=== PATIENT | female | born 1955 | race Caucasian/White ===

== ENCOUNTER → 2023-10-10 11:00 | Outpatient (REF) | payer MEDICARE, OTHER, SELFPAY | LOC: RAD 11:00 | PROVIDERS: ATTENDING PHYSICIAN Internal Medicine Gastroenterology | DX: R19.7 Diarrhea, unspecified (principal) | CPT/HCPCS: 74018 ==

== ENCOUNTER → 2023-12-12 09:47 | Outpatient (REF) | payer MEDICARE, OTHER, SELFPAY | LOC: RAD 09:47 | PROVIDERS: ATTENDING PHYSICIAN Physician Assistant Medical | DX: J18.9 Pneumonia, unspecified organism (principal) | CPT/HCPCS: 71046 ==

== ENCOUNTER 2023-12-18 12:05 | Emergency (ER) | payer MEDICARE, OTHER, SELFPAY ==
[2023-12-18 12:08] VITALS: BP 133/65
[2023-12-18 12:31] LABS: % Basophils 0.4 % (0-2); % Eosinophils 1.6 % (0-6); % Immature Granulocytes 0.3 % (0-0.5); % Lymphocytes 24.6 % (20.5-51.1); % Monocytes 6.1 % (1.7-9.3); Absolute Eosinophils 0.1 10^3/uL (0-0.7); Absolute Lymphocytes 1.7 10^3/uL (1.2-3.4); Absolute Monocytes 0.4 10^3/uL (0.1-0.6); Absolute Neutrophils 4.6 10^3/uL (1.4-6.5); Hematocrit 36.2 % (37.0-47.0); Hemoglobin 11.9 g/dL (12.0-16.0); Mean Corp Hgb Conc. 32.9 g/dL (33.0-37.0); Mean Corpuscular Hgb 29.7 pg (27.0-31.0); Mean Corpuscular Volume 90.3 fL (81.0-99.0); Nucleated Red Blood Cells % 0 %; Platelet Count 260 10^3/uL (130-400); Red Blood Cell Count 4.01 10^6/uL (4.20-5.40); White Blood Cell Count 6.9 10^3/uL (4.8-10.8)
[2023-12-18 12:42] LABS: INR 1.01; PT 13.1 Sec (11.4-14.6)
[2023-12-18 12:44] LABS: ALT (SGPT) 20 U/L (0-35); AST (SGOT) 27 U/L (14-36); Albumin 3.8 g/dl (3.5-5.0); Alkaline Phosphatase 102 U/L (38-126); Blood Urea Nitrogen 14 mg/dl (7-17); Calcium 9.3 mg/dl (8.4-10.2); Carbon Dioxide 25 mmol/L (22-30); Chloride 106 mmol/L (98-107); Glucose 132 mg/dl (70-99); Potassium 4.8 mmol/L (3.5-5.1); Sodium 139 mmol/L (135-145); Total Bilirubin 0.5 mg/dl (0.2-1.3); Total Protein 6.7 g/dl (6.3-8.2); eGFR > 60.00
[2023-12-18 15:07] VITALS: BP 136/68
--- NOTE | 2023-12-18 15:24 | ED.GENMED ---
History of Present Illness
General
Chief Complaint: Breathing Problem
Source: patient
Exam Limitations: none
Time Seen by Provider: 12/18/23 15:14
Travel History
Have you had any contact with someone who has COVID-19?: No
Do you have any symptoms of coronavirus? Fever > 100 degrees, chills, cough, shortness of breath, sore throat, loss of taste or smell, muscle aches, or headache?: No
History of Present Illness
History of Present Illness:
See MDM
Past History
Past History
ED Past Medical History: Arrthythmia (SVT, PVCs), Asthma, Hypothyroidism and Other (Pancreatitis, History of ulcerative colitis)
ED Past Surgical History: Cholecystectomy, Tonsilectomy and Other (C5-6 removal with Fusion and cage)
Social History
Tobacco: Former smoker
Alcohol: None
Personal:
Living: with family
Employment: Employed
Phy Exam
Physical Exam
Physical Exam:
See MDM
Scores
Heart Failure Risk
Heart Failure Risk Score: Not Applicable
Course
Orders/Labs/Results
Orders:
Orders
12/18/23 12:14
Electrocardiogram (*1) Urgent
Reason for Study: Chest Pain
12/18/23 12:15
EKG- Treatment ONCE
12/18/23 12:22
Complete Blood Count/With Diff Urgent
Comprehensive Metabolic Panel Urgent
Prothrombin Time Urgent
12/18/23 15:23
CT Chest Pe Study Urgent
Comment: recent dx pna
Reason For Exam: SOB, cough
12/18/23 15:33
NT-proBNP Urgent
Troponin I Urgent
Abnormal Lab Results
12/18/23
12:22
RBC 4.01 L 10^6/uL
(4.20-5.40)
Hgb 11.9 L g/dL
(12.0-16.0)
Hct 36.2 L %
(37.0-47.0)
MCHC 32.9 L g/dL
(33.0-37.0)
Glucose 132 H mg/dl
(70-99)
12/18/23 12:22
12/18/23 12:22
Vital Signs
Initial and Last Documented VS:
Initial Vital Signs
Temp Pulse Resp BP Pulse Ox
97.7 F 70 18 133/65 96
12/18/23 12:08 12/18/23 12:08 12/18/23 12:08 12/18/23 12:08 12/18/23 12:08
Last Documented Vital Signs
Temp Pulse Resp BP Pulse Ox
97.7 F 66 16 136/68 96
12/18/23 12:08 12/18/23 15:08 12/18/23 15:08 12/18/23 15:07 12/18/23 12:08
MDM/Problems Addressed
Differential Diagnosis Includes:
HPI and MDM Narrative:
68-year-old female presenting from PCP office to rule out PE. She is currently on her second round of antibiotics for persistent pneumonia. She has been dealing with a cough for 20 days. Patient does acknowledge that she thinks she is doing
better but she has a trip coming up and wants to make sure that everything is okay. Given recent, PCP sent her in for PE rule out. Patient states she gets winded with exertion. Because of this, will obtain troponin and BNP. Patient relatively
symptom-free at rest
Physical exam
General: Well appearing and non-toxic
HEENT: protecting airway
Neck: appears supple
CV: No evidence of cyanosis. Regular rate and rhythm
Resp: No accessory muscle use. Lungs clear
Abd: Non-distended
Extremities: No deformities. No leg edema
Neuro: alert
Psych: Normal affect
Skin: Intact
Problems Addressed including Acute and Chronic Conditions affecting care:
1. Shortness of breath
Acuity: acute
Prognosis: stable
Details: Given persistent symptoms, will obtain CT to rule out PE
Updates
Cardiac testing negative. CT PE negative. We discussed Bronchiolitis. Patient already finished a course of steroids early in her disease process and states she does not tolerate steroids well. Will write for steroid inhaler
Differential Diagnosis (but not limited to): PE, ACS, pneumonia
Testing considered: Chest x-ray
Drug therapy (if applicable): OTC meds, please see d/c instruction regarding Rx drugs
Amount and/or Complexity of Data Reviewed
Clinical info obtained from: Patient
External data reviewed: N/A
Labs I independently reviewed (but not limited to): Troponin and BNP negative
Radiology: The CT scan was personally and independently reviewed. In addition, official CT report reviewed.
Pulse Ox: not hypoxic
EKG independently reviewed: N/A
Pageant Director: N/A
Critical Care: N/A
Risk of Complication:
Social Determinants of health: Good social support
Discussed with other providers: N/A
Escalation of Care includes Admit/Obs: After being observed in the Emergency Department, pt stable for discharge.
Occasional wrong word or 'sound a like' substitutions may have occurred due to the inherent limitations of voice recognition software. Read the chart carefully and recognize, using context, where substitutions have occurred.
*Critical Care Note
Total Time (30-74mins, 75-104mins- exclusive of procedures): Not Applicable
ED Attending Note
-
Portions of this chart may have been created with voice recognition software.� Occasional wrong word or��sound alike� substitutions may have occurred due to the inherent limitations of voice recognition software.
Discharge Plan
Departure
Patient Disposition: Home (Routine Discharge)
Date of Disposition: 12/18/23
Time of Disposition: 17:33
Patient with high blood pressure during this ER visit?: No
Discharge Problem:
Bronchiolitis
Prescriptions:
New
fluticasone propion-salmeterol [Wixela Inhub] 500-50 mcg/dose blister with device
1 inh inhalation BID Qty: 60 0RF
No Action
amitriptyline 10 MG tablet
10 mg PO HS
levothyroxine 150 MCG tablet
150 mcg PO DAILY
Patient Comments:
Brand H
albuterol sulfate 1 PUFF HFA aerosol inhaler
1 - 2 puff inhalation PRN PRN (Reason: Short of breath)
loratadine 10 MG tablet
10 mg PO PRN PRN (Reason: allergy)
cholestyramine (with sugar) 378 GM powder
1 pack PO DAILY
Patient Comments:
rarely used
fluticasone furoate-vilanterol [Breo Ellipta] 1 EACH blister with device
1 puff inhalation DAILY
Saline Nasal Gel
1 applic ophthalmic (eye) HS
Patient Comments:
USED FOR THE EYES FOR FUCHS DYSTROPHY
hydrocodone-acetaminophen 1 TABLET tablet
1 tab PO Q4H PRN (Reason: PAIN)
acetaminophen [Tylenol Extra Strength] 500 MG tablet
1,000 mg PO Q6H PRN (Reason: PAIN)
cholecalciferol (vitamin D3) 2,000 UNIT tablet
1 tab PO DAILY
Referrals:
Noe Varghese PA-C [Family Provider] -
Activity Restrictions/Additional Instructions:
Please return for any worsening symptoms.
You may return at any time if you have further concerns.
Please follow up with your doctor at the first available appointment, preferably this week.
Thank you for choosing [facility].
Interventions
Interventions:
*Risk Screen - Suicide Last Done: 12/18/23 12:08
*General Assessment Last Done: 12/18/23 12:08
*Neglect/Abuse Screening Last Done: 12/18/23 12:08
ED- Fall Risk Assessment Last Done: 12/18/23 15:11
ED- Cardiac Assessment Last Done: 12/18/23 15:11
ED- Pulmonary Assessment Last Done: 12/18/23 15:11
Discharge Date and Time
Print Language: DANISH
[2023-12-18 16:10] LABS: NT-proBNP 65.5 pg/ml; Troponin I < 0.012 ng/ml
== END 2023-12-18 17:44 | disposition home or self-care (01) ==
LOC: EMR 12:05
PROVIDERS: Emergency Medicine; EMERGENCY PHYSICIAN Student in an Organized Health Care Education/Training Program; FAMILY PHYSICIAN Physician Assistant Medical
DX: J21.9 Acute bronchiolitis, unspecified (principal); J45.909 Unspecified asthma, uncomplicated; E03.9 Hypothyroidism, unspecified; Z87.891 Personal history of nicotine dependence; Z90.49 Acquired absence of other specified parts of digestive tract; J18.9 Pneumonia, unspecified organism; I47.10 Supraventricular tachycardia, unspecified; I49.3 Ventricular premature depolarization
CPT/HCPCS: 99284; 71275; 80053; 83880; 84484; 85025; 85610; 93005; Q9967

== ENCOUNTER → 2024-01-15 14:22 | Outpatient (REF) | payer MEDICARE, OTHER, SELFPAY | LOC: HWWDC 14:22 | PROVIDERS: ATTENDING PHYSICIAN Obstetrics & Gynecology; FAMILY PHYSICIAN Physician Assistant Medical | DX: Z12.31 Encounter for screening mammogram for malignant neoplasm of breast (principal) | CPT/HCPCS: 77063; 77067 ==

== ENCOUNTER → 2024-03-22 11:13 | Outpatient (REF) | payer MEDICARE, OTHER, SELFPAY | LOC: RAD 11:13 | PROVIDERS: ATTENDING PHYSICIAN Family Medicine | DX: J18.9 Pneumonia, unspecified organism (principal) | CPT/HCPCS: 71046 ==

== ENCOUNTER 2024-03-24 19:33 | Emergency (ER) | payer MEDICARE, OTHER, SELFPAY ==
[2024-03-24 19:43] VITALS: BP 90/52
--- NOTE | 2024-03-24 21:18 | ED.SKININJ ---
HPI-Injury
General
Chief Complaint: Bite
Source: patient
Exam Limitations: none
Time Seen by Provider: 03/24/24 20:43
History of Present Illness-Injury
Initial Injury comments:
Patient bit by their own cat. Cat had rabies vaccines just past Marianne. Patient's tetanus is not up-to-date. Likely 10 years old. Bleeding from the left hand. Had a vasovagal near syncope in triage that has resolved.
Past History
Past History
ED Past Medical History: Arrthythmia (SVT, PVCs), Asthma, Hypothyroidism and Other (Pancreatitis, History of ulcerative colitis)
ED Past Surgical History: Cholecystectomy, Tonsilectomy and Other (C5-6 removal with Fusion and cage)
Social History
Tobacco: Former smoker
Alcohol: None
Personal:
Living: with family
Employment: Employed
Review of Systems
Review of Systems
All Other Systems: Not applicable
Phy Exam
Physical Exam
Physical Exam:
Insert brief physical exam. Multiple superficial punctures dorsal hand. Some pain with extension of the second digit. However able to do. Motor or sensory neurovascular intact. 1.5 cm laceration near the thenar area dorsally.
Course
Orders/Labs/Results
Orders:
Orders
03/24/24 21:13
Tetanus/Diphth/Acelpertussis [Adacel] 0.5 ml IM .ONCE ONE
03/24/24 21:40
MetroNIDAZOLE [Flagyl] 500 mg PO NOW STA
03/24/24 21:47
Cefuroxime Axetil [Ceftin] 500 mg PO NOW STA
Vital Signs
Initial and Last Documented VS:
Initial Vital Signs
Temp Pulse Resp Pulse Ox
97.8 F 68 22 96
03/24/24 19:38 03/24/24 19:38 03/24/24 19:38 03/24/24 19:38
Last Documented Vital Signs
Temp Pulse Resp BP Pulse Ox
97.8 F 68 20 138/70 99
03/24/24 19:38 03/24/24 22:17 03/24/24 22:17 03/24/24 22:17 03/24/24 22:17
*Pulse Oximetry
Patient hypoxic: no
*Critical Care Note
Total Time (30-74mins, 75-104mins- exclusive of procedures): Not Applicable
Update Note
Update Note:
Given the puncture wound by the cat on the hand, very reluctant to suture. Area was numbed with 1% lido with epi. Copious irrigation. Wound was debrided of superficial fat and skin. Loosely will suture. Patient has a moderate penicillin
allergy. She has been on cephalosporins recently and tolerated this well. Plan would be Ceftin plus Flagyl and follow-up
ED Attending Note
-
Portions of this chart may have been created with voice recognition software.� Occasional wrong word or��sound alike� substitutions may have occurred due to the inherent limitations of voice recognition software.
Discharge Plan
Departure
Patient Disposition: Home (Routine Discharge)
Date of Disposition: 03/24/24
Time of Disposition: 22:08
Patient with high blood pressure during this ER visit?: No
Discharge Problem:
Multiple puncture wounds laceration left, Secondary to cat bite left hand, Near syncopal episode
Instructions: Animal Bites (DC), Near Fainting (DC)
Prescriptions:
New
cefuroxime axetil 500 mg tablet
500 mg PO BID 5 Days Qty: 10 0RF
metronidazole 500 mg tablet
500 mg PO TID Qty: 15 0RF
No Action
amitriptyline 10 MG tablet
10 mg PO HS
levothyroxine 150 MCG tablet
150 mcg PO DAILY
Patient Comments:
Brand H
albuterol sulfate 1 PUFF HFA aerosol inhaler
1 - 2 puff inhalation PRN PRN (Reason: Short of breath)
loratadine 10 MG tablet
10 mg PO PRN PRN (Reason: allergy)
cholestyramine (with sugar) 378 GM powder
1 pack PO DAILY
Patient Comments:
rarely used
fluticasone furoate-vilanterol [Breo Ellipta] 1 EACH blister with device
1 puff inhalation DAILY
Saline Nasal Gel
1 applic ophthalmic (eye) HS
Patient Comments:
USED FOR THE EYES FOR FUCHS DYSTROPHY
hydrocodone-acetaminophen 1 TABLET tablet
1 tab PO Q4H PRN (Reason: PAIN)
acetaminophen [Tylenol Extra Strength] 500 MG tablet
1,000 mg PO Q6H PRN (Reason: PAIN)
cholecalciferol (vitamin D3) 2,000 UNIT tablet
1 tab PO DAILY
fluticasone propion-salmeterol [Wixela Inhub] 500-50 mcg/dose blister with device
1 inh inhalation BID Qty: 60 0RF
Referrals:
Noe Varghese PA-C [Family Provider] - Follow up in 2-3 days
Activity Restrictions/Additional Instructions:
Your prescriptions were sent to your pharmacy
Keep elevated
Watch closely for infection
Get rechecked in 2 days. Sooner if worse
Interventions
Interventions:
*Risk Screen - Suicide Last Done: 03/24/24 19:58
*General Assessment Last Done: 03/24/24 19:58
*Neglect/Abuse Screening Last Done: 03/24/24 19:58
ED- Fall Risk Assessment Last Done: 03/24/24 19:58
*Nursing Disposition Last Done: 03/24/24 22:20
ED-Skin Assessment Last Done: 03/24/24 19:58
Discharge Date and Time
Discharge Date/Time: 03/24/24 22:21
Print Language: VIETNAMESE
[2024-03-24] MEDS: ADACEL 0.5 ML IM (21:20)
[2024-03-24 21:45] VITALS: BMI 31.0
[2024-03-24] MEDS: FLAGYL 500 MG PO (22:00)
[2024-03-24] MEDS: CEFTIN 500 MG PO (22:00)
[2024-03-24 22:17] VITALS: BP 138/70
== END 2024-03-24 22:21 | disposition home or self-care (01) ==
LOC: EMR 19:33
PROVIDERS: EMERGENCY PHYSICIAN Emergency Medicine; FAMILY PHYSICIAN Physician Assistant Medical
DX: R55 Syncope and collapse (principal); S61.432A Puncture wound without foreign body of left hand, initial encounter; S61.452A Open bite of left hand, initial encounter; W55.01XA Bitten by cat, initial encounter; Z23 Encounter for immunization; J45.909 Unspecified asthma, uncomplicated; E03.9 Hypothyroidism, unspecified; I47.10 Supraventricular tachycardia, unspecified; K51.90 Ulcerative colitis, unspecified, without complications; Z87.891 Personal history of nicotine dependence; Z90.49 Acquired absence of other specified parts of digestive tract; M43.22 Fusion of spine, cervical region; Z88.0 Allergy status to penicillin; Z88.5 Allergy status to narcotic agent; Z88.8 Allergy status to other drugs, medicaments and biological substances; Z88.6 Allergy status to analgesic agent; Z88.1 Allergy status to other antibiotic agents; Z91.041 Radiographic dye allergy status
CPT/HCPCS: 12041; 99283; 90471; 90715

== ENCOUNTER → 2024-04-10 07:00 | Outpatient (REF) | payer MEDICARE, OTHER, SELFPAY | LOC: MRI 07:00 | PROVIDERS: ATTENDING PHYSICIAN Orthopaedic Surgery; FAMILY PHYSICIAN Physician Assistant Medical | DX: M25.551 Pain in right hip (principal) | CPT/HCPCS: 73721 ==

== ENCOUNTER → 2024-06-11 08:17 | Outpatient (REF) | payer MEDICARE, OTHER, SELFPAY | LOC: HWRAD 08:17 | PROVIDERS: ATTENDING PHYSICIAN Obstetrics & Gynecology; FAMILY PHYSICIAN Physician Assistant Medical | DX: R10.31 Right lower quadrant pain (principal) | CPT/HCPCS: 76830; 76856 ==

== ENCOUNTER → 2024-06-24 11:02 | Outpatient (REF) | payer MEDICARE, OTHER, SELFPAY | LOC: RAD 11:02 | PROVIDERS: ATTENDING PHYSICIAN Internal Medicine Gastroenterology; FAMILY PHYSICIAN Physician Assistant Medical | DX: R19.7 Diarrhea, unspecified (principal) | CPT/HCPCS: 74018 ==

== ENCOUNTER → 2024-07-09 06:49 | Outpatient (REF) | payer MEDICARE, OTHER, SELFPAY | LOC: MRI 06:49 | PROVIDERS: ATTENDING PHYSICIAN Specialist; FAMILY PHYSICIAN Physician Assistant Medical | DX: M25.511 Pain in right shoulder (principal) | CPT/HCPCS: 73221; 93005 ==

== ENCOUNTER 2024-07-17 06:22 | Day surgery (SDC) | payer MEDICARE, OTHER, SELFPAY | END 2024-07-17 09:02 | disposition home or self-care (01) | LOC: GI 06:22 | PROVIDERS: ATTENDING PHYSICIAN Internal Medicine Gastroenterology; FAMILY PHYSICIAN Physician Assistant Medical | DX: Z12.11 Encounter for screening for malignant neoplasm of colon (principal); D12.0 Benign neoplasm of cecum; D12.2 Benign neoplasm of ascending colon; D12.3 Benign neoplasm of transverse colon; R19.7 Diarrhea, unspecified; K64.8 Other hemorrhoids; K62.89 Other specified diseases of anus and rectum | CPT/HCPCS: 45385; 45380; 88305 ==

== ENCOUNTER → 2024-09-30 12:47 | Outpatient (REF) | payer MEDICARE, OTHER, SELFPAY | LOC: HWRAD 12:47 | PROVIDERS: ATTENDING PHYSICIAN Obstetrics & Gynecology; FAMILY PHYSICIAN Physician Assistant Medical | DX: N83.201 Unspecified ovarian cyst, right side (principal) | CPT/HCPCS: 76830; 76856 ==

== ENCOUNTER → 2024-10-31 11:26 | Outpatient (REF) | payer MEDICARE, OTHER, SELFPAY | LOC: RAD 11:26 | PROVIDERS: ATTENDING PHYSICIAN Obstetrics & Gynecology Gynecologic Oncology | DX: R19.03 Right lower quadrant abdominal swelling, mass and lump (principal); R10.31 Right lower quadrant pain; Z80.41 Family history of malignant neoplasm of ovary; Z12.9 Encounter for screening for malignant neoplasm, site unspecified | CPT/HCPCS: 71260; 74177; Q9967 ==

== ENCOUNTER → 2024-11-18 09:16 | Outpatient (REF) | payer MEDICARE, OTHER, SELFPAY | LOC: SDSPAT 09:16 | PROVIDERS: ATTENDING PHYSICIAN Obstetrics & Gynecology Gynecologic Oncology; FAMILY PHYSICIAN Physician Assistant Medical | DX: R19.03 Right lower quadrant abdominal swelling, mass and lump (principal) | CPT/HCPCS: 36415; 86850; 86900; 86901 ==

== ENCOUNTER → 2024-12-02 07:02 | Outpatient (REF) | payer MEDICARE, OTHER, SELFPAY | LOC: RCS 07:02 | PROVIDERS: ATTENDING PHYSICIAN Internal Medicine Cardiovascular Disease; FAMILY PHYSICIAN Physician Assistant Medical | DX: R07.9 Chest pain, unspecified (principal) | CPT/HCPCS: 93306 ==

== ENCOUNTER → 2024-12-05 10:19 | Outpatient (REF) | payer MEDICARE, OTHER, SELFPAY ==
[2024-12-05 11:34] LABS: % Basophils 0.5 % (0-2); % Eosinophils 0.8 % (0-6); % Immature Granulocytes 1.3 % (0-0.5); % Lymphocytes 26.9 % (20.5-51.1); % Monocytes 6.9 % (1.7-9.3); % Neutrophils 63.6 % (42.2-75.2); Absolute Eosinophils 0.1 10^3/uL (0-0.7); Absolute Immature Granulocytes 0.1 10^3/uL (0-0.05); Absolute Lymphocytes 1.6 10^3/uL (1.2-3.4); Absolute Monocytes 0.4 10^3/uL (0.1-0.6); Absolute Neutrophils 3.9 10^3/uL (1.4-6.5); Hematocrit 36.5 % (37.0-47.0); Mean Corp Hgb Conc. 32.9 g/dL (33.0-37.0); Mean Corpuscular Hgb 30.5 pg (27.0-31.0); Mean Corpuscular Volume 92.6 fL (81.0-99.0); Mean Platelet Volume 10.6 fL (7.4-10.4); Nucleated Red Blood Cells % 0 %; Platelet Count 208 10^3/uL (130-400); Red Blood Cell Count 3.94 10^6/uL (4.20-5.40); Red Cell Dist. Width 12.9 % (11.5-14.5); White Blood Cell Count 6.1 10^3/uL (4.8-10.8)
[2024-12-05 13:26] LABS: ALT (SGPT) 25 U/L (0-35); AST (SGOT) 30 U/L (14-36); Albumin 4.1 g/dl (3.5-5.0); Alkaline Phosphatase 78 U/L (38-126); Blood Urea Nitrogen 13 mg/dl (7-17); Calcium 9.5 mg/dl (8.4-10.2); Carbon Dioxide 30 mmol/L (22-30); Chloride 104 mmol/L (98-107); Glucose 91 mg/dl (70-99); Potassium 4.8 mmol/L (3.5-5.1); Sodium 140 mmol/L (135-145); Total Bilirubin 0.7 mg/dl (0.2-1.3); Total Protein 6.8 g/dl (6.3-8.2); eGFR > 60.00
[2024-12-05 13:33] LABS: Free T3 4.08 pg/ml (2.77-5.27); Free T4 1.58 ng/dl (0.78-2.19)
[2024-12-05 13:46] LABS: TSH 0.03 uIU/ml (0.47-4.68)
== END ==
LOC: RCS 10:19
PROVIDERS: ATTENDING PHYSICIAN Internal Medicine Cardiovascular Disease; FAMILY PHYSICIAN Physician Assistant Medical
DX: R07.9 Chest pain, unspecified (principal); E03.9 Hypothyroidism, unspecified; E78.2 Mixed hyperlipidemia; F41.9 Anxiety disorder, unspecified; M16.11 Unilateral primary osteoarthritis, right hip; R79.89 Other specified abnormal findings of blood chemistry; R74.01 Elevation of levels of liver transaminase levels; F32.1 Major depressive disorder, single episode, moderate
CPT/HCPCS: 93017; 36415; 80053; 84439; 84443; 84481; 85025; 93350

== ENCOUNTER 2024-12-09 06:02 | Day surgery (SDC) | payer MEDICARE, OTHER, SELFPAY ==
[2024-11-18 13:42] VITALS: BMI 32.2
--- NOTE | 2024-12-08 06:38 | W.CON.GYNONC ---
Chief Complaint
-
N/A
History of Present Illness
69�year�old�G3�P3003�white�female�menopausal�since�age�51�who�presents�to�me�for�consultation�regarding�right�lower�quadrant
cystic�mass.�Patient's�gynecologic�history�significant�for�abnormal�uterine�bleeding�in�the�perimenopausal�year,�she�underwent
endometrial�ablation�just�before�age�51�resulting�in�amenorrhea.�In�addition�her�mother�Iza�Kiki�was�patient�of�mine�and�was
diagnosed�with�ovarian�cancer,�she�is�still�alive�a�number�of�years�later.�Starting�about�1�year�ago�the�patient�started�experiencing
right�lower�quadrant�pain.�Initial�evaluation�was�done�by�CT�scan�of�abdomen�and�pelvis�Jenifer�,�simple�cyst�of�the�liver�in
the�left�lobe�was�identified,�small�hemangioma�was�seen�in�the�superior�aspect�of�lateral�segment.�Appendix�was�normal�there�was
no�bowel�obstruction�there�was�no�free�intraperitoneal�air�and�comments�were�made�that�there�was�no�abnormality�in�the�uterus both�ovaries�were�normal.�She�has�subsequently�seen�her�location analyst.�At�pelvic�ultrasound�was�done�November��that
shows�uterus�anteverted�6.4�x�3.2�x�3.6�cm.�Multiple�small�myometrial�masses�are�present.�Endometrial�echo�is�2�mm�trace anechoic�fluid�is�seen�within�the�endometrial�cavity.�The�right�ovary�is�1.6�cm,�the�right�ovary�is�8�mm�cyst�with�some�internal
echoes.�Septation�described�on�MRI�is�not�clearly�identified�on�sonography.�Left�ovary�is�1.2�cm.�Another�follow�up�ultrasound
�shows�uterus�7�x�3.2�x�4.7�cm,�endometrium�is�4�mm,�fibroids�are�seen�in�the�uterus.�Right�ovary�is�2�x�1.4�x�1.6
cm�containing�a�simple�complex�cyst,�measuring�1.7�x�1.8�cm,�smaller�complex�right�ovarian�cyst�seen�on�prior�study�as�well�8
mm�is�noted.�Left�ovary�is�visualized�and�its�2.4�cm.�There�is�no�free�fluid.�Comments�are�made�that�the�right�ovarian�lesion�is�likely a�hemorrhagic�cyst.
Patient's�past�medical�history�significant�for�allergies,�asthma,�cataracts,�gastroesophageal�reflux�disease,�hypothyroidism,
tachycardia,�elevated�cholesterol�level.�She�also�has�Psoriatec�arthritis�and�has�been�on�7�different�medications�up�to�this�point
Past�surgical�history�is�significant�for�cholecystectomy,�back�surgery�201nd�201,�cervical�spine,�lumbar�spine�surgery tonsillectomy�as�well�as�endometrial�ablation.
Her�medications�include�Synthroid,�montelukast,�Pepcid,�sertraline,�vitamin�D,�metoprolol,�rosuvastatin,�amitriptyline,�additional medications�as�needed�include�budesonide,�Flonase�and�ProAir.�Recently�started�rinvoq
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
Family�history�significant�for�mother�with�ovarian�cancer�at�age�74�as�well�as�paternal�grandmother�with�multiple�myeloma.
Medical History
Allergies
Allergies reflect when allergies were last updated in [facility].
amoxicillin [Amoxicillin] Allergy (Verified 12/02/24 09:05)
Tongue Swelling,hives,blisters in mouth
amylase [From Pancrease] Allergy (Verified 12/02/24 09:05)
whole body rash
cefdinir [Cefdinir] Allergy (Verified 12/02/24 09:05)
Rash
clindamycin Allergy (Verified 12/02/24 09:05)
severe gastric pain
doxycycline Allergy (Verified 12/02/24 09:05)
rash, blisters
erythromycin base Allergy (Verified 12/02/24 09:05)
Hives
Gadolinium-Containing Contrast Medi Allergy (Verified 12/02/24 09:05)
rash,hives
Gadopentetate Dim *RETIRED-04/16/12 [From Magnevist] Allergy (Verified 12/02/24 09:05)
PT FELT ITCHY
gallium Allergy (Verified 12/02/24 09:05)
SEE BELOW
ibuprofen Allergy (Verified 12/02/24 09:05)
Hives,trouble breathing and swollen tongue
ketorolac [From Toradol] Allergy (Verified 12/02/24 09:05)
hives, blisters
levofloxacin [From Levaquin] Allergy (Verified 12/02/24 09:05)
severe abd pain,vomiting
lipase [From Pancrease] Allergy (Verified 12/02/24 09:05)
whole body rash
NSAIDS (Non-Steroidal Anti-Inflamma Allergy (Verified 12/02/24 09:05)
Hives,trouble breathing and swollen tongue
oxycodone HCl [From Percocet] Allergy (Verified 12/02/24 09:05)
Vomiting
Penicillins Allergy (Verified 12/02/24 09:05)
hives,blistersin mouth,swollen tongue
protease [From Pancrease] Allergy (Verified 12/02/24 09:05)
whole body rash
Tetracyclines Allergy (Verified 12/02/24 09:05)
Pt states that her allergy is to doxycycline
Physical Exam
Physical Exam
Pelvic�Examination: External�normal�labia,�urethra,�anus.� Vagina:�Normal�mucosa.� Cervix:�normal�appearance,�no�discharge. Uterus:�normal�size.�
Adnexa:�No�pelvic�mass.�Significant�tenderness�is�appreciated�in�right�lower�quadrant,�I�do�not�feel�any�fixation�or�nodularity�on bimanual�and�rectovaginal�exam RVE:�no�masses�or�nodularity
General:�Well�developed,�well�nourished�patient.�In�no�acute�distress. Head:�Atraumatic�and�normocephalic. Neck:�No�thyromegaly.�No�cervical�lymphadenopathy. Lungs:�Clear�to�auscultation.�Good�air�movement�bilaterally.
Cardiac:�Regular�rate.�Regular�rhythm.�No�murmurs�appreciated. Right�Breast:�No�masses�or�dimpling.�No�nipple�discharge. Left�Breast:�No�masses�or�dimpling.�No�nipple�discharge. Abdomen:�Abdomen�is�soft.�Non�tender�to�palpation.�Non�distended.
Extremities:�No�edema. Hematologic/Lymphatic:�No�palpable�lymphadenopathy. Musculoskeletal:�Normal�range�of�motion.�Strength�and�Tone�are�normal. Skin:Non�jaundiced.�No�petechia.�No�purpura.
Neurologic:�Speech�is�fluent.�Normal�gait�and�station.�Cranial�nerves�intact
Results
-
PROCEDURE: CT Chest/abd/pel W Iv Cont
INDICATION: 69-year-old with right lower quadrant abdominal pain. Family history of ovarian cancer.
TECHNIQUE: CT examination of the chest, abdomen, and pelvis was performed following the uneventful administration of intravenous contrast. Oral contrast was administered. Coronal and sagittal reformatted images were obtained. Automatic exposure
control radiation dose reduction technology was utilized.
COMPARISON: CT abdomen/pelvis from 08/24/2023; pelvic ultrasound from 09/30/2024
FINDINGS:
LUNGS/PLEURA: Central airways are patent. No focal airspace disase. No nodules. No pleural effusions or pneumothorax.
VESSELS: Non-aneurysmal thoracic aorta.
MEDIASTINUM: No hilar or mediastinal lymphadenopathy. No masses.
HEART: Normal sized without pericardial effusion.
CHEST WALL: Unremarkable thyroid gland. No supraclavicular or axillary lymphadenopathy.
LIVER: Contains a 3.1 cm lobulated cyst within the left lobe.
GALLBLADDER: Surgically absent.
BILE DUCTS: Within normal limits.
PANCREAS: Within normal limits.
SPLEEN: Within normal limits.
ADRENALS: Within normal limits.
KIDNEYS/URETERS: No hydronephrosis or stones. Several small right-sided parapelvic cysts.
BOWEL: No obstruction or wall thickening.
PERITONEUM: No ascites or free air.
REPRODUCTIVE: Uterus and left ovary unremarkable. 13 mm hypodensity within the posterior margin of the right ovary which may correspond to the complex cyst seen on the prior pelvic ultrasound.
BLADDER: Within normal limits.
VESSELS: Non-aneurysmal abdominal aorta.
RETROPERITONEUM: No retroperitoneal or pelvic lymphadenopathy.
ABDOMINAL WALL: Within normal limits.
BONES: No suspicious lesions.
IMPRESSION:
1. No acute findings within the chest, abdomen, or pelvis. No evidence for metastatic disease.
2. Subtle 13 mm hypodensity within the posterior margin of the RIGHT ovary which may correspond to the complex cyst seen on the prior pelvic ultrasound. No suspicious features, noting limited evaluation given its small size. Continued follow-up
with pelvic ultrasound recommended.
3. Additional findings above.
Electronically signed by Norris Cervantes MD, 10/31/2024 1:37 PM
Comp. Metabolic Panel (14)�-FinalOrdered by:�Adarsh Franco Source:�Blood
Glucose 87 mg/dL 70-99 [facility]
BUN 16 mg/dL 8-27 [facility]
Creat 0.72 mg/dL 0.57-1.00 [facility]
eGFR 91 mL/min/1.73 >59 [facility]
BUN Creat Ratio 22 12-28 [facility]
Sodium 140 mmol/L 134-144 [facility]
Potassium 4.2 mmol/L 3.5-5.2 [facility]
Chloride 102 mmol/L 96-106 [facility]
CO2 24 mmol/L 20-29 [facility]
Calcium 9.8 mg/dL 8.7-10.3 [facility]
Total Protein 7.1 g/dL 6.0-8.5 [facility]
Albumin 4.5 g/dL 3.9-4.9 [facility]
Globulin 2.6 g/dL 1.5-4.5 [facility]
Total Bili 0.3 mg/dL 0.0-1.2 [facility]
Alk Phos 99 IU/L 44-121 [facility]
AST 35 IU/L 0-40 [facility]
ALT 33High IU/L 0-32 [facility]
Prothrombin Time (PT)�-FinalOrdered by:�Adarsh EnmanuelSergiomagdaleno Source:�Blood
INR 0.9 0.9-1.2 [facility]
���������������Reference�interval�is�for�non-anticoagulated�patients.
��������������������������������������������������������������������.
���������������Suggested�INR�therapeutic�range�for�Vitamin�K
���������������antagonist�therapy:
������������������Standard�Dose�(moderate�intensity
���������������������������������therapeutic�range):�������2.0�-�3.0
������������������Higher�intensity�therapeutic�range�������2.5�-�3.5
ProTime 10.4 sec 9.1-12.0 [facility]
CEA�-FinalOrdered by:�Adarsh Shoemakermagdaleno Source:�Blood
CEA 1.7 ng/mL 0.0-4.7 [facility]
��������������������������������������������Nonsmokers����������<3.9
��������������������������������������������Smokers�������������<5.6
��������������������������������������������������������������������.
���������������[facility]�Electrochemiluminescence�Immunoassay
���������������(ECLIA)
��������������������������������������������������������������������.
���������������Values�obtained�with�different�assay�methods�or�kits
���������������cannot�be�used�interchangeably.��Results�cannot�be
���������������interpreted�as�absolute�evidence�of�the�presence�or
���������������absence�of�malignant�disease.
Cancer Antigen (CA) 125�-FinalOrdered by:�Adarsh Salvador Source:�Blood
CA125 15.9 U/mL 0.0-38.1 [facility]�Electrochemiluminescence�Immunoassay�(ECLIA)
���������������������������������������������������������������������.
Values�obtained�with�different�assay�methods�or�kits�cannot�be
used�interchangeably.��Results�cannot�be�interpreted�as�absolute
evidence�of�the�presence�or�absence�of�malignant�disease.
PTT, Activated�-FinalOrdered by:�Adarsh Franco Source:�Blood
aPTT 26 sec 24-33 [facility]
This�test�has�not�been�validated�for�monitoring�unfractionated�heparin
therapy.�aPTT-based�therapeutic�ranges�for�unfractionated�heparin
therapy�have�not�been�established.�For�general�guidelines�on
Heparin�monitoring,�refer�to�the�[facility]�Directory�of�Services.
TSH reflex to T4F�-FinalOrdered by:�Adarsh Franco Source:�Blood
TSH 0.158Low uIU/mL 0.450-4.500 [facility]
LDH�-FinalOrdered by:�Adarsh Franco Source:�Blood
LDH 207 IU/L 119-226 [facility]
Impression / Plan
-
This�is�a�69�year�old�woman�who�is�presenting�with�right�lower�quadrant�pain�intermittently�over�the�course�of�past�year�with�prior
history�of�endometrial�ablation,�imaging�studies�have�suggested�presence�of�a�small�complex�ovarian�lesion�which�is�likely�a hemorrhagic�cyst.�I�ordered�labs�including�CA125�and�CEA�both�of�which�are�normal.�My�suspicion�is�that�this�patient�has�had
some�bleeding�in�the�uterus�but�the�blood�is�unable�to�exit�due�to�prior�ablation�history�and�likely�is�moving�retrograde�on�the�tubes
and�ovaries�creating�essentially�an�iatrogenic�form�of�endometriosis.�Given�the�fact�that�she�has�a�personal�family�member�with
ovarian�cancer�first�degree�1�has�to�have�a�higher�index�of�suspicion�for�presence�of�malignancy.�She�had�a�very�limited�testing
performed�which�was�over�2�decades�ago�and�I�do�recommend�myriad�my�risk�to�be�performed�again�to�see�whether�she�has�any
deleterious�mutations.�Ultimately�I�think�she�would�benefit�from�surgical�removal�of�the�uterus�cervix�bilateral�tubes�and�ovaries�for definitive�management.�Patient�is�agreeable
I�will�go�ahead�and�schedule�her�for�robotic�assisted�total�laparoscopic�hysterectomy�bilateral�salpingo�oophorectomy�with�plans�to
perform�pelvic�washings�and�intraoperative�frozen�section�of�the�right�adnexa.�If�there�is�any�malignancy�additional�staging
procedures�will�be�done�to�include�but�not�limited�to�pelvic�and�aortic�lymph�node�dissection�peritoneal�biopsies�omentectomy�and comprehensive�staging.�Procedure�will�be�scheduled�in�May�202.�
�We�discussed�pros�and�cons�of�various�approaches�and�she�is�agreeable�with�the�plan�set�forth�above. Informed�consent�was�signed�in�the�office�today.
[2024-12-09] VITALS (14 sets, daily range): BP systolic 102–136; BP diastolic 51–68; BMI 32.2
[2024-12-09] MEDS: HEPARIN 5000 UNITS SC (07:09)
[2024-12-09] MEDS: TYLENOL 1000 MG PO (07:09)
[2024-12-09] MEDS: NORMOSOL-R/PLASMALYTE-A 1000 IV (07:10)
[2024-12-09] MEDS: DILAUDID 0.25 MG IV (10:09)
--- NOTE | 2024-12-09 12:02 | OR.RPT ---
Addendum entered and electronically signed by Torin Willingham MD 12/11/24 05:15:
Date of procedure: 12/09/24
Original Note:
Operative Report
Operative Report
Preoperative diagnosis: Right ovarian lesion on imaging study, family history of maternal ovarian cancer
Postoperative diagnosis: Benign serous cyst of right ovary otherwise benign findings
Procedure:
Robotic assisted total laparoscopic hysterectomy, bilateral salpingo-oophorectomy with pelvic washing
Tap block
Surgeon: Torin Willingham MD
Assist: Willy Blair PA-C
EBL: 50 cc
Anesthesia: General Endotracheal intubation
Complication: None
Specimen: Uterus and cervix with bilateral tubes and ovaries appear overall to be within normal limits, the right ovary has some firm small lesions, this was sent for frozen section which revealed benign serous cyst clinically I suspect
cystadenofibroma
Findings: There is no evidence of ascites, uterus and cervix are unremarkable, bilateral tubes and ovaries are small in size and do not have any gross features suggestive of malignancy. Pelvic paracolic and upper abdominal peritoneum is without any
implants. Right and left diaphragms are normal. Omentum is unremarkable. There is some adhesions of the omentum to the left abdomen.
Procedure in detail: This patient was taken to the operating room and placed in supine position. General anesthesia was administered and she was intubated without any difficulty. Arms were wrapped with foam and laid along the patient's sides and
neck and shoulder were appropriately protected. She was placed in lithotomy position using yellowfin stirrups and prepped on the abdomen perineum and vagina. The patient was draped. Timeout procedure was carried out, she received 2 g of Ancef and
500 mg of Flagyl. Mcgee catheter was placed under sterile conditions in the bladder. Using Sheldon retractor the cervix was identified and grasped on the anterior lip, cervical canal was gently dilated. Uterine manipulator calender operator helper type with 3
cm MIKE ring was placed in the endometrial cavity and vaginal cuff occluder was insufflated. Attention was turned abdominally. Veress needle was inserted just below the left subcostal margin and pneumoperitoneum was created with CO2 gas up to
pressure of 15 mmHg. 8 mm XI robotic port was inserted approximately 22 cm cephalad to symphysis pubis into the peritoneal cavity and then under direct visualization 8 mm XI robotic ports were inserted right and left upper abdomen and right and
left lateral abdomen. Tap block was performed using combination of 30 cc 0.2% ropivacaine admixed with 30 cc sterile saline and 1 mg of Decadron injected equally under direct visualization 2 fingerbreadths below right and left subcostal margins as
well as right and left lateral mid abdomen. Following this survey of the abdomen was performed with the findings noted above. Patient was placed in 28 degree Trendelenburg and robotic system was docked. Washings were collected in the pelvis and
submitted to pathology. Right and left round ligaments were sealed and divided anterior and posterior leaves of the broad ligament resected open in both infundibulopelvic ligaments were isolated and a window was created between them and the ureters
in the retroperitoneum. IP ligaments were sealed 3 times and divided. Tubes and ovaries were left attached to the uterus. Next, bladder flap was sharply developed and advanced below the cervicovaginal junction. Uterine arteries were sealed
after they were skeletonized and divided circumferential incision was made over the MIKE ring and uterosacral ligaments were transected as part of this. Specimen of uterus and cervix with left tube and ovary was removed through the vagina. Specimen
was sent for frozen section. Request to perform frozen section on the right ovary. Dr. Espinoza and pathology called back reporting benign serous cyst of right ovary. There was no evidence of malignancy. Because of this no further staging
procedures were performed. The vaginal apex was closed with a 0 Vicryl suture ligature in a [id number] fashion involving uterosacral ligaments on both sides and then a V-Loc suture was used to close the vagina starting from right to the left
and then back to the right side in 2 layers. We released the pneumoperitoneum and removed the ports and undocked the robotic system, we did not close any of the fascia involving incisions. We closed the skin incisions with 4-0 Monocryl in a
subcuticular fashion. Vaginal canal was examined and there was no evidence of lacerations or bleeding Mcgee catheter was removed. Patient was awakened and returned back to recovery room stable awake and extubated condition counts of labs
instruments and needle was correct x 2. I was present and scrubbed for entire procedure as dictated above.
Disposition: To PACU, stable awake and extubated
== END 2024-12-09 12:10 | disposition home or self-care (01) ==
LOC: SDS 06:02
PROVIDERS: ATTENDING PHYSICIAN Obstetrics & Gynecology Gynecologic Oncology; FAMILY PHYSICIAN Physician Assistant Medical
DX: D27.0 Benign neoplasm of right ovary (principal); D25.9 Leiomyoma of uterus, unspecified
CPT/HCPCS: 58571; 88307; 88332; 86900; 86901; 88112; 88331

== ENCOUNTER → 2025-02-06 10:09 | Outpatient (REF) | payer MEDICARE, OTHER, SELFPAY ==
[2025-02-12 00:12] LABS: Pancreatic Elastase, Fecal 625 ug/g (>=100)
== END ==
LOC: REG 10:09
PROVIDERS: ATTENDING PHYSICIAN Internal Medicine Gastroenterology; FAMILY PHYSICIAN Physician Assistant Medical
DX: R19.7 Diarrhea, unspecified (principal)
CPT/HCPCS: 82653

== ENCOUNTER → 2025-06-19 13:07 | Outpatient (REF) | payer MEDICARE, OTHER, SELFPAY | LOC: RAD 13:07 | PROVIDERS: ATTENDING PHYSICIAN Nurse Practitioner; FAMILY PHYSICIAN Physician Assistant Medical | DX: U07.1 COVID-19 (principal) | CPT/HCPCS: 71046 ==

== ENCOUNTER → 2025-07-29 10:30 | Outpatient (REF) | payer MEDICARE, OTHER, SELFPAY | LOC: RAD 10:30 | PROVIDERS: ATTENDING PHYSICIAN Physician Assistant Medical | DX: E03.9 Hypothyroidism, unspecified (principal); S09.90XA Unspecified injury of head, initial encounter | CPT/HCPCS: 70450 ==